=== PATIENT | female | born 1975 | race Hispanic/Latino ===

== ENCOUNTER 2020-04-07 15:22 | Outpatient (CLI) | payer OTHER ==
--- NOTE | 2020-04-07 15:51 | ULT ---
Renal sonogram HISTORY: Hematuria. FINDINGS: Right kidney is 9.6 cm length and the left 11.5 cm. Each has a normal sonographic appearanc e without mass, stone, or hydronephrosis. Urinary bladder has a normal appearance IMPRESSION : No abnormalities are demonstrated. If hematuria persists, consider CT abdomen/pelvis without and with IV contrast for better sensitivity of abnormalities.
== END 2020-04-07 15:23 | disposition home or self-care (01) ==
LOC: BICULT 15:22
PROVIDERS: ATTEND Nurse Practitioner Family
DX: R31.9 Hematuria, unspecified (principal)
CPT/HCPCS: 76770